=== PATIENT | male | born 1995 | race Caucasian/White ===

== ENCOUNTER 2019-04-30 12:16 | Emergency (ER) | payer BC, SELFPAY ==
[2019-04-30 12:34] VITALS: BP 133/75; PULSE 64; RESP 16; TEMP 36.7; O2SAT 100
--- NOTE | 2019-04-30 12:36 | ED.GENADULT ---
HPI - General Adult General Chief complaint: Upper Respiratory Infection Stated complaint: cough/nausea/light-headed Source: patient and RN notes reviewed Mode of arrival: ambulatory Limitations: no limitations History of Present Illness HPI narrative: This is a 23 years old male presents to the office for an evaluation of cold symptoms for 16days. Symptoms include cough associated with nausea and lightheaded at times especially when he moves his head. He did not take any medicine for his symptoms, stated that he does not like to take anything. He also stated that his was sick with similar symptoms and had negative strep and flu. States, he took the last two days off because he did not feel well. His manager organizational asked him to be seen and get a work release before he can go back. Related Data Allergies Allergy/AdvReac Type Severity Reaction Status Date / Time codeine Allergy Mild Nausea Unverified 11/29/18 17:32 adhesive tape Allergy Unknown Unknown Verified 04/30/19 12:41 cast padding Allergy Mild Hives / Uncoded 01/07/16 14:12 Red Face CEPHALEXIN MONOHYDRATE Allergy Mild Unknown Uncoded 04/30/19 12:41 Review of Systems Review of Systems: Narrative: CONSTITUTIONAL: Denies fever, chills ENT: Denies rhinorrhea, congestion, sore throat CARDIOVASCULAR: Denies chest pain, palpitation RESPIRATORY: Denies dyspnea, wheezing. Report occasional cough and worse at night at times. GASTROINTESTINAL: Denies abdominal pain, nausea, vomiting, diarrhea. 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 There is no relevant family history pertinent to the presenting complaint. Exam Narrative: Exam Narrative: GENERAL: This is a well-nourished, well-developed patient, in no apparent distress. EYES: PERRL. EMOI. Sclera clear/white. Vision is grossly intact. EARS: External ears normal, auditory canals clear and without drainage, TMs normal without perforation. Hearing grossly intact. NOSE: External nose normal with no obvious nasal discharge, nares without redness, no rhinorrhea. THROAT: Mucous membranes moist, posterior pharynx clear. NECK: Neck supple, non-tender without lymphadenopathy, masses or thyromegaly. CARDIOVASCULAR: Regular rate and rhythm without murmurs, gallops, or rubs. RESPIRATORY: Clear to auscultation. Breath sounds equal bilaterally. No wheezes, rales, or rhonchi. GASTROINTESTINAL: Abdomen soft, non-tender, nondistended. Bowel sounds are active. No hepato-splenomegaly, or palpable masses. No guarding. SKIN: warm, intact with no suspicious lesions or rash, good texture and turgor. NEURO: awake, alert, and oriented to person, place and time. There were no obvious focal neurologic abnormalities. Steady gait EXTREMITIES: Normal range of motion. No edema. [place] Coma Scale Eye Opening: Spontaneous 4 Megan Coma Scale Motor: Obeys Commands 6 Megan Coma Scale Verbal: Oriented 5 Course Vital Signs Vital signs: Vital Signs Temperature 98.0 F 04/30/19 12:34 Pulse Rate 64 04/30/19 12:34 Respiratory Rate 16 04/30/19 12:34 Blood Pressure 133/75 04/30/19 12:34 Pulse Oximetry 100 04/30/19 12:34 Temperature 98.0 F 04/30/19 12:34 Pulse Rate 64 04/30/19 12:34 Respiratory Rate 16 04/30/19 12:34 Blood Pressure 133/75 04/30/19 12:34 Pulse Oximetry 100 03/1
== END 2019-04-30 12:56 | disposition home or self-care (01) ==
PROVIDERS: Emergency Provider Nurse Practitioner
DX: J06.9 Acute upper respiratory infection, unspecified (principal); Z87.891 Personal history of nicotine dependence
CPT/HCPCS: 99213; G0463

== ENCOUNTER 2019-08-30 20:56 | Emergency (ER) | payer MEDICAID, SELFPAY ==
--- NOTE | ~2019-08-30 | XR_ITS ---
EXAMINATION: XR hand RT min 3V DATE: 08/30/2019 21:10 INDICATION: Right hand injury and pain. TECHNIQUE: 4 views of right hand were obtained. COMPARISON: Right hand radiographs 01/07/2016 FINDINGS: Bone alignment is normal. There is an old healed fracture of fifth metacarpal. No acute fr acture. There is mild posttraumatic osteoarthritis of fifth metacarpophalangeal joint. IMPRESSION: 1. 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 Reviewed, dictated and finalized at location A.
[2019-08-30 21:03] VITALS: BP 132/83; PULSE 65; RESP 20; TEMP 36.5; O2SAT 100
--- NOTE | 2019-08-30 21:07 | PC.NURSE ---
pt to xray at this time
--- NOTE | 2019-08-30 21:44 | ED.UPPEXIN ---
HPI - Extremity Injury (Upper) General Chief Complaint: Extremity Injury, Upper Stated Complaint: punched something Time Seen by Provider: 08/30/19 21:17 Source: patient Mode of arrival: ambulatory Limitations: no limitations History of Present Illness HPI narrative: This is a 23-year-old male that presents the emergency department for right hand pain after an injury 2 days ago. Patient reports he punched a wall. Since has had pain in the right fifth metacarpal bone. Reports a previous injury to this hand. Denies decreased range of motion or numbness. Related Data Home Medications Medication Instructions Recorded Confirmed No Home Medications 08/30/19 08/30/19 Allergies Allergy/AdvReac Type Severity Reaction Status Date / Time cephalexin Allergy Severe Nausea And Verified 08/30/19 21:05 Vomiting codeine Allergy Mild Nausea Unverified 08/30/19 21:05 adhesive tape Allergy Unknown Unknown Verified 08/30/19 21:05 cast padding Allergy Mild Hives / Uncoded 08/30/19 21:05 Red Face CEPHALEXIN MONOHYDRATE Allergy Mild Unknown Uncoded 08/30/19 21:05 Review of Systems Review of Systems: Narrative: CONSTITUTIONAL: Denies fever MUSCULOSKELETAL: Reports joint pain, and myalgia. NEUROLOGIC: Denies numbness, or weakness. All systems reviewed & are unremarkable except as noted in HPI and below PMFSH Social History Social History (System 05/01/19 @ 09:31 by Sophia Charles) Social History: quite 03/2019 Smoking status: Never smoker Alcohol intake: current Gender identity (if verbalized by the patient): Male Exam Narrative: Exam Narrative: GENERAL: Well-appearing, well-nourished, and in no acute distress. HEAD: Normocephalic, atraumatic. EYES: EOMI. EXTREMITIES: Normal range of motion. No edema or obvious deformity. Normal radial pulses. Normal sensation SKIN: Warm, dry, no rash. NEURO: No focal deficits. Alert and oriented x3. PSYCH: Normal mood and affect Course Vital Signs Vital signs: Vital Signs Temperature 97.7 F 08/30/19 21:03 Pulse Rate 65 08/30/19 21:03 Respiratory Rate 20 08/30/19 21:03 Blood Pressure 132/83 08/30/19 21:03 Pulse Oximetry 100 08/30/19 21:03 Temperature 97.7 F 08/30/19 21:03 Pulse Rate 65 07/18/20 21:03 Respiratory Rate 20 08/30/19 21:03 Blood Pressure 132/83 08/30/19 21:03 Pulse Oximetry 100 08/30/19 21:03 MDM - Extremity Injury (Upper) MDM Narrative Medical decision making narrative: Patient presents to the emergency department for right hand pain after an injury 2 days ago. Right hand x-ray is without acute osseous abnormalities. Patient and family updated on case findings. Was placed in a Bird wrap and instructed to rest, ice and take [id number] pain medication as needed. Is to follow-up with primary care doctor. Was given warnings to return to the ER Imaging Data Radiologist's impression: ITS Impressions Hand X-Ray 08/30/19 21:12 IMPRESSION: 1. 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 Critical Care Time Critical Care Time Critical Care Time: No Discharge Plan Discharge Clinical Impression: Hand pain, right Patient Disposition: Home, Self-Care Condition: Stable Instructions: Contusion in Adults (ED) Additional Instructions: Return to the emergency department if you experience fever, redness and swelling of your hand, or any other symptoms that are concerning to you Rest. Ice to the area. Tylenol or ibuprofen as needed for pain Follow-up with primary care doctor Prescriptions: No Action No Home Medications RF: 0 Follow-up/Referrals: Jayshree Isidro MD [Physician] - 1 Week PHYSICIAN,DECORATING MACHINE TENDER [Primary Care Provider] -
[2019-08-30 22:03] VITALS: BP 132/79; PULSE 60; RESP 18; O2SAT 99
== END 2019-08-30 22:04 | disposition home or self-care (01) ==
PROVIDERS: Emergency Provider Emergency Medicine
DX: M79.641 Pain in right hand (principal); M18.9 Osteoarthritis of first carpometacarpal joint, unspecified
CPT/HCPCS: 73130; 99283

== ENCOUNTER 2020-06-06 17:26 | Emergency (ER) | payer OTHER, SELFPAY ==
[2020-06-06 17:36] VITALS: BP 142/92; PULSE 80; RESP 16; TEMP 36.6; O2SAT 99
--- NOTE | 2020-06-06 17:47 | ED.WOUNDLAC ---
HPI - Wound/Laceration General Chief Complaint: Wound/Laceration Stated Complaint: cut right 2nd finger Time Seen by Provider: 06/06/20 17:40 Source: patient Mode of arrival: ambulatory Limitations: no limitations History of Present Illness HPI narrative: Sohan Gibbs is a 24 yo male with a PMH of bipolar disorder who [facility] with a fingertip avulsion of the second right finger with from a mandolin knife that occurred 5 hours POA. Is continued to bleed and will need Surgicel placed and pressure dressing Related Data Allergies Allergy/AdvReac Type Severity Reaction Status Date / Time cephalexin Allergy Severe Nausea And Verified 06/06/20 17:51 Vomiting codeine Allergy Mild Nausea Verified 06/06/20 17:51 adhesive tape Allergy Unknown Unknown Verified 06/06/20 17:51 cast padding Allergy Mild Hives / Uncoded 06/06/20 17:51 Red Face CEPHALEXIN MONOHYDRATE Allergy Mild Unknown Uncoded 06/06/20 17:51 Review of Systems Review of Systems: Narrative: CONSTITUTIONAL: Denies fever, chills, sweats. EYES: Denies visual changes, redness, discharge. ENT: Denies rhinorrhea, congestion, sore throat, otalgia. CARDIOVASCULAR: Denies chest pain, palpitations, edema. RESPIRATORY: Denies dyspnea, wheezing, cough GASTROINTESTINAL: Denies abdominal pain, nausea, vomiting, diarrhea. GENITOURINARY: Denies dysuria, hematuria, abnormal discharge SKIN: Denies rash or itching. Avulsion of second right fingertip NEUROLOGIC: Denies numbness, or focal weakness. PSYCHIATRIC: Denies anxiety or depression. [facility] Past Medical History Medical History (Updated 06/06/20 @ 17:57 by Kristy Carlos CNP) Asthma as a kid Back injury during [employer] training for [employer] 2016 Hx of fracture of finger from basketball Family History Family History Mother Family history of glaucoma Father Patient's father is in good health Social History Social History Social History: quite 03/2019 Smoking status: Never smoker Alcohol intake: current Gender identity (if verbalized by the patient): Male Comments At time of signature, I agree with nursing past medical, surgical, social and family history. There is no relevant family history pertinent to the presenting complaint. Blood pressure is elevated due to situation of injury and amount of bleeding Exam Narrative: Exam Narrative: GENERAL: This is a well-nourished, well-developed patient, in moderate distress. HEAD: normocephalic, atraumatic. EYES: Sclera clear/white. Vision is grossly intact. EARS: External ears normal. Hearing grossly intact. NOSE: External nose normal without nasal discharge, nares without redness, no rhinorrhea. THROAT: Mucous membranes moist, NECK: Neck supple, r CARDIOVASCULAR: Regular rate and rhythm without murmurs, gallops, or rubs. RESPIRATORY: Clear to auscultation. Breath sounds equal bilaterally. No wheezes, rales, or rhonchi. GASTROINTESTINAL: Abdomen soft, SKIN: warm, intact with no suspicious lesions or rash, good texture and turgor. NEURO: awake, alert, and oriented to person, place and time. There were no obvious focal neurologic abnormalities. Steady gait EXTREMITIES: Normal range of motion. Negative avulsion of the second right finger with uncontrolled bleeding - finger warm and pink BACK: Nontender without deformity Course Course Emergency Course: Sohan Gibbs is a 24-year-old male who comes with a fingertip avulsion of the second f right finger from a mandolin that occurred 5 hours POA. Bleeding is uncontrolled Pain via soaking and Surgicel applied to wound with pressure dressing Tetanus vaccination given Directions to patient given cream and removal of Surgicel in 5 days protection of area with finger cap Until fully healed Vital Signs Vital signs: Vital Signs Temperature 97.9 F 06/06/20 17:36 Pulse Rate 80 06/06/
[2020-06-06] MEDS: TETANUS,DIPHTHERIA,AC PERTUSSIS ADULT (0.5 ML) BOOSTRIX IM (17:55)
== END 2020-06-06 18:17 | disposition home or self-care (01) ==
PROVIDERS: Emergency Provider Nurse Practitioner
DX: S61.200D Unspecified open wound of right index finger without damage to nail, subsequent encounter (principal); W26.0XXD Contact with knife, subsequent encounter; Z23 Encounter for immunization
CPT/HCPCS: 90471; 90715; 99213; G0463

== ENCOUNTER 2020-06-06 20:23 | Emergency (ER) | payer OTHER, SELFPAY ==
[2020-06-06 20:38] VITALS: BP 141/83; PULSE 79; RESP 17; TEMP 36.4; O2SAT 98
--- NOTE | 2020-06-06 21:18 | ED.WOUNDLAC ---
HPI - Wound/Laceration General Chief Complaint: Wound/Laceration Stated Complaint: wound check Time Seen by Provider: 06/06/20 20:54 History of Present Illness HPI narrative: Patient is a 24-year-old male who presents ER with finger pain. Had injured his right second on a mandolin. She was seen at an urgent care and had the wound dressed. Unfortunately the pharmacies were not open he was not able to obtain his prescriptions. No new injury to the finger. Continues to have some throbbing pain. Related Data Allergies Allergy/AdvReac Type Severity Reaction Status Date / Time cephalexin Allergy Severe Nausea And Verified 06/06/20 20:38 Vomiting codeine Allergy Mild Nausea Verified 06/06/20 20:38 adhesive tape Allergy Unknown Unknown Verified 06/06/20 20:38 cast padding Allergy Mild Hives / Uncoded 06/06/20 17:51 Red Face CEPHALEXIN MONOHYDRATE Allergy Mild Unknown Uncoded 06/06/20 17:51 Review of Systems Musculoskeletal: Comments: Right second digit pain with avulsion to the fingertip. Neurologic: Denies focal weakness and Denies numbness PMFSH Past Medical History Medical History (Updated 06/06/20 @ 21:22 by Jt Flores MD) Asthma as a kid Back injury during [employer] training for [employer] 2016 Hx of fracture of finger from basketball Family History Family History Mother Family history of glaucoma Father Patient's father is in good health Social History Social History Social History: quite 03/2019 Smoking status: Never smoker Alcohol intake: current Gender identity (if verbalized by the patient): Male Exam Narrative: Exam Narrative: GENERAL: Well-appearing, well-nourished, and in no acute distress. HEAD: Normocephalic, atraumatic. EXTREMITIES: Normal range of motion. Splint to the right second digit. NEURO: Alert and oriented x3. PSYCH: Normal mood and affect. Course Course Emergency Course: First dose is given here. He can barely pharmacy in the morning until the rest of his medications. Coban removed from the splint as it may have been tight causing some discomfort and then rewrapped. Vital Signs Vital signs: Vital Signs Temperature 97.5 F L 06/06/20 20:38 Pulse Rate 79 06/06/20 20:38 Respiratory Rate 17 06/06/20 20:38 Blood Pressure 141/83 H 06/06/20 20:38 Pulse Oximetry 98 06/06/20 20:38 Temperature 97.5 F L 06/06/20 20:38 Pulse Rate 79 06/06/20 20:38 Respiratory Rate 17 06/06/20 20:38 Blood Pressure 141/83 H 06/06/20 20:38 Pulse Oximetry 98 06/06/20 20:38 Discharge Plan Discharge Clinical Impression: Avulsion of fingertip Patient Disposition: Home, Self-Care Condition: Stable Instructions: Skin Avulsion (ED) Additional Instructions: Go to the pharmacy and picking table worker the medication that had been previously prescribed in the morning. Return to the ER if your hand is red and hot, you have fever over 100.4 ?F, you have additional concerns. Prescriptions: No Action clindamycin HCl 300 mg capsule 300 mg PO BID 7 Days Qty: 14 RF: 0 hydrocodone-acetaminophen 5-325 mg tablet 1 tablet PO Q4H PRN (Reason: pain) Qty: 20 RF: 0 Follow-up/Referrals: PHYSICIAN,ENVIRONMENTAL COMMUNICATIONS SPECIALIST [Primary Care Provider] -
[2020-06-06] MEDS: HYDROcodone/acetaminophen (*CRX) 5-325 MG TABLET 1 TAB PO (21:20)
[2020-06-06] MEDS: CLINDAMYCIN HCL 150 MG CAP 300 MG PO (21:23)
== END 2020-06-06 21:31 | disposition home or self-care (01) ==
PROVIDERS: Emergency Provider Emergency Medicine
DX: S61.200A Unspecified open wound of right index finger without damage to nail, initial encounter (principal); W27.4XXA Contact with kitchen utensil, initial encounter; Z23 Encounter for immunization
CPT/HCPCS: 90471; 90715; 99283; A9270

== ENCOUNTER 2020-08-03 10:28 | Outpatient (CLI) | payer OTHER, SELFPAY ==
--- NOTE | ~2020-08-03 | XR_ITS ---
EXAMINATION: XR thoracic spine 3V DATE: 08/03/2020 10:57 INDICATION: Back pain TECHNIQUE: AP, lateral and lateral swimmer's views of the thoracic spine were obtained. COMPARISON: None. FINDINGS: There is no fracture, dislocation, or subluxation. The vertebral body heights, alignment, a nd intervertebral disc spaces are normal. The paravertebral soft tissues are unremarkable. IMPRESSION: 1. No acute osseous abnormality. Reviewed, dictated and finalized at location A.
--- NOTE | ~2020-08-03 | XR_ITS ---
XR lumbar spine 2-3V 08/03/2020 10:57 Indication: Back pain Procedure: 3 views lumbar spine Comparison: 09/17/2018. Findings: Vertebral body and disc heights are preserved. No fracture or traumatic malalignment. Pedic les intact. No evidence for spondylolisthesis. Sacral foramen are symmetric. Impression: 1: No significant abnormality of the lumbar spine. Reviewed, dictated and finalized at location B. Impression: 1: No significant abnormality of the lumbar spine.
--- NOTE | ~2020-08-03 | XR_ITS ---
XR cervical spine 4-5V INDICATION: Neck and back pain for 6 years TECHNIQUE: 4 views of the cervical spine. FINDINGS: No prior studies for comparison. The cervical spine is visualized to the cervicothoracic junction. There is no prevertebral soft tiss ue swelling, listhesis, or loss of vertebral body height. Intervertebral disc spaces are normal. Th e osseous central canal is patent. No displaced cervical spine fractures are identified. IMPRESSION: 1. No acute osseous abnormality of the cervical spine. Reviewed, dictated and finalized at location B.
== END 2020-08-03 10:29 | disposition home or self-care (01) ==
LOC: ANHIMG 10:33
PROVIDERS: PCP Physician Assistant; Visit Provider Physician Assistant
DX: M54.6 Pain in thoracic spine (principal); M54.2 Cervicalgia; M54.5 Low back pain
CPT/HCPCS: 72050; 72072; 72100

== ENCOUNTER 2021-02-19 10:37 | Emergency (ER) | payer OTHER, SELFPAY ==
--- NOTE | ~2021-02-19 | XR_ITS ---
EXAMINATION: XR chest 2V DATE: 02/19/2021 12:37 INDICATION: Right-sided chest pain. TECHNIQUE: Frontal and lateral views of the chest were obtained. COMPARISON: Chest 2 views 11/23/2018 FINDINGS: The chest demonstrates clear lungs without pneumonia, pleural effusion, or pneumothorax. Th e heart size is normal. IMPRESSION: 1. No acute cardiopulmonary disease. Reviewed, dictated and finalized at location A. LANGUAGE INSTRUCTOR
[2021-02-19 10:43] VITALS: BP 155/91; PULSE 66; RESP 14; TEMP 36.2; O2SAT 99
[2021-02-19 12:08] VITALS: BP 150/104; PULSE 66; RESP 16; O2SAT 95
--- NOTE | 2021-02-19 12:14 | ECG_ITS ---
Measurements Intervals [place] Rate: 68 P: 48 MS: 146 QRS: 55 QRSD: 102 T: 27 QT: 374 QTc: 400 Interpretive Statements SINUS RHYTHM WITH SINUS ARRHYTHMIA MINIMAL Q WAVES- INFERIOR LEADS BORDERLINE ECG Electronically Signed On 02-19-2021 18:20:40 SOCK LINING STITCHER by Dimitri Davey D.O.
--- NOTE | 2021-02-19 12:20 | ED.CHESTPAIN ---
HPI - Chest Pain General Chief Complaint: Chest Pain Stated Complaint: chest pain Time Seen by Provider: 02/19/21 12:13 Source: patient Mode of arrival: ambulatory Limitations: no limitations History of Present Illness HPI narrative: Patient is a 25-year-old male complaining of chest pain, right chest wall, dull, was 5-6 out of 10, currently denies any pain, worse with movement and bending over, started yesterday. Patient denies any shortness of breath, abdominal pain, nausea, vomiting, diaphoresis, fever or chills. Related Data Home Medications Medication Instructions Recorded Confirmed levothyroxine 02/19/21 prednisone 02/19/21 Allergies Allergy/AdvReac Type Severity Reaction Status Date / Time cephalexin Allergy Severe Nausea And Verified 06/06/20 20:38 Vomiting codeine Allergy Mild Nausea Verified 06/06/20 20:38 adhesive tape Allergy Unknown Unknown Verified 06/06/20 20:38 cast padding Allergy Mild Hives / Uncoded 06/06/20 17:51 Red Face CEPHALEXIN MONOHYDRATE Allergy Mild Unknown Uncoded 06/06/20 17:51 Review of Systems Review of Systems: All systems reviewed & are unremarkable except as noted in HPI and below Constitutional: Constitutional: Denies body ache(s), Denies chills, Denies excessive sweating, Denies fatigue, Denies fever(s), Denies headache(s), Denies lethargy, Denies malaise, Denies weakness and Denies weight loss Eyes: Eyes: Denies blurry vision, Denies change in vision and Denies loss of vision ENT: Denies dizziness, Denies ear discharge, Denies headache(s), Denies lip swelling, Denies epistaxis, Denies nasal congestion, Denies neck pain, Denies throat swelling and Denies tongue swelling Cardiovascular: Cardiovascular: Denies diaphoresis, Denies rapid heart rate, Denies edema, Denies irregular heart rhythm, Denies lightheadedness, Denies palpitations, Denies dyspnea and Denies dyspnea on exertion Respiratory: Respiratory: Denies chest congestion, Denies cough, Denies hemoptysis, Denies dyspnea and Denies dyspnea on exertion Gastrointestinal: Gastrointestinal: Denies abdominal pain, Denies melena, Denies hematochezia, Denies diarrhea, Denies nausea, Denies vomiting and Denies hematemesis Musculoskeletal: Musculoskeletal: Denies abnormal gait, Denies deformity, Denies joint swelling, Denies limited range of motion, Denies neck pain and Denies numbness Neurologic: Denies Abnormal speech present, Denies abnormal gait, Denies confusion, Denies dizziness, Denies headache(s), Denies focal weakness, Denies loss of vision, Denies numbness, Denies Other visual disturbances, Denies Sensory deficit (Neuro) and Denies weakness Psychiatric: Psychiatric: Denies confusion, Denies depression, Denies auditory hallucinations, Denies homicidal ideation and Denies suicidal ideation Endocrine: Endocrine: Denies cold intolerance, Denies excessive sweating, Denies fatigue, Denies heat intolerance and Denies palpitations Hematologic/Lymphatic: Hematologic/Lymphatic: Denies easy bleeding and Denies easy bruising Allergic/Immunologic: Allergic/Immunologic: Denies lip swelling, Denies throat swelling and Denies tongue swelling PMFSH Past Medical History Medical History (Updated 02/19/21 @ 14:10 by Florencio Dickinson MD) Asthma as a kid Back injury during [employer] training for [employer] 2015 Hx of fracture of finger from basketball Family History Family History Mother Family history of glaucoma Father Patient's father is in good health Social History Social History Social History: quite 03/2019 Smoking status: Never smoker Alcohol intake: current Gender identity (if verbalized by the patient): Male Exam Const: General: cooperative, healthy appearing, comfortable, no acute distress, well developed, alert and awake; No confusion Orientation/consciousness: oriented to person, oriented
[2021-02-19 13:00] VITALS: BP 141/92; PULSE 65; RESP 16; O2SAT 97
[2021-02-19 13:09] LABS: Basophils Absolute Auto 0.1 K/mm3 (0.0-0.1); Basophils Percent Auto 0.5 % (0.2-1.2); Eosinophils Percent Auto 0.3 % (0-4.4); Hematocrit 46.2 % (42.0-52.0); Hemoglobin 15.7 g/dL (14.0-18.0); Immature Granulocyte Absolute 0.07 K/mm3 (0.00-0.031); Immature Granulocyte Percent A 0.5 % (0-0.5); Lymphocytes Absolute Auto 1.63 K/mm3 (0.9-3.2); Lymphocytes Percent Auto 12.3 % (18.3-44.2); Mean Corpuscular Hemoglobin 29.3 pg (26-34); Mean Corpuscular Volume 86.4 fl (80-100); Mean Platelet Volume 9.9 fl (7.4-10.4); Monocytes Absolute Auto 0.4 K/mm3 (0.1-0.6); Monocytes Percent Auto 3.1 % (2.6-8.5); Neutrophils Percent Auto 83.3 % (45.5-73.1); Platelet Count Result 359 k/mm3 (150-375); Red Blood Count 5.35 M/mm3 (4.6-6.20); Red Cell Distribution Width 12.4 % (11.5-14.5); White Blood Count 13.2 K/mm3 (4.5-10.0)
[2021-02-19 13:21] LABS: Anion Gap 12 mmol/L (8-16); Blood Urea Nitrogen 18 mg/dL (9-20); Carbon Dioxide 21 mmol/L (22-30); Chloride 102 mmol/L (98-107); Estimated CRCL calculation 110 ml/min; Estimated Glomerular Filt Rate > 60; Glucose 116 mg/dL (65-110); Potassium 4.4 mmol/L (3.4-5.0); Sodium 135 mmol/L (137-145)
[2021-02-19 13:32] LABS: Troponin I < 0.012 ng/mL (0.000-0.034)
[2021-02-19 14:27] VITALS: BP 137/90; PULSE 73; RESP 16; O2SAT 100
== END 2021-02-19 14:30 | disposition home or self-care (01) ==
PROVIDERS: Emergency Provider Emergency Medicine; PCP Physician Assistant
DX: R07.89 Other chest pain (principal); J45.909 Unspecified asthma, uncomplicated; R94.31 Abnormal electrocardiogram [ECG] [EKG]
CPT/HCPCS: 36415; 71046; 80048; 84484; 85025; 93005; 99284

== ENCOUNTER 2021-03-03 16:50 | Outpatient (CLI) | payer OTHER, SELFPAY ==
--- NOTE | ~2021-03-03 | MR_ITS ---
EXAMINATION: MR lumbar spine wo con EXAM DATE: 03/03/2021 18:15 INDICATION: Low back pain. TECHNIQUE: Multi-sequential, multiplanar MR images of the lumbar spine were obtained without contrast . Sagittal T1, T2, T2 fat saturation images. Axial T2 weighted images. There is no prior study for comparison. FINDINGS: Vertebral body and disc heights are well-maintained. There are no suspicious marrow signal abnormalit ies. Paraspinal soft tissue is unremarkable. The conus medullaris terminates at the L1/2 level and shah s normal signal intensity and morphology. Level by level evaluation: T12-L1: Disc does not extend beyond the endplate margin. Facet arthropathy: None. Neural foraminal stenosis: No stenosis. Central canal stenosis: No stenosis. L1-L2: Disc does not extend beyond the endplate margin. Facet arthropathy: None. Neural foraminal stenosis: No stenosis. Central canal stenosis: No stenosis. L2-L3: Disc does not extend beyond the endplate margin. Facet arthropathy: None. Neural foraminal stenosis: No stenosis. Central canal stenosis: No stenosis. L3-L4: There is a minimal diffuse disc bulge. Facet arthropathy: Mild. Neural foraminal stenosis: No stenosis. Central canal stenosis: No stenosis. L4-L5: There is a mild diffuse disc bulge. Facet arthropathy: Mild. Neural foraminal stenosis: Mild bilateral. Central canal stenosis: No stenosis. L5-S1: There is a mild diffuse disc bulge. Facet arthropathy: Mild. Neural foraminal stenosis: Mild left. Central canal stenosis: No stenosis. IMPRESSION: Mild lumbar spondylosis. No acute findings. Reviewed, dictated and finalized at location B. BOAT ENGINEER
== END 2021-03-03 16:51 | disposition home or self-care (01) ==
PROVIDERS: PCP Physician Assistant; Visit Provider Physician Assistant Surgical
DX: M47.817 Spondylosis without myelopathy or radiculopathy, lumbosacral region (principal); M48.07 Spinal stenosis, lumbosacral region
CPT/HCPCS: 72148

== ENCOUNTER 2022-03-09 08:08 | Emergency (ER) | payer OTHER, SELFPAY ==
--- NOTE | 2022-03-09 08:22 | ED.URI ---
HPI - URI/Sore Throat General Chief Complaint: Upper Respiratory Infection Stated Complaint: sorethroat,headache Time Seen by Provider: 03/09/22 08:22 Source: patient, RN notes reviewed and old records reviewed Mode of arrival: ambulatory Limitations: no limitations History of Present Illness HPI Narrative: 26-year-old male presents to the [facility] with complaints of a sore throat and headache since last night. Reports a fever of 102 last night, took some Tylenol. reports headache is gone patient reports symptoms started approximately 6:00 p.m. last night MD elicited complaint: sore throat Onset (ago): hour(s) (12-18) Related Data Home Medications Medication Instructions Recorded Confirmed levothyroxine 25 mcg tablet 25 mcg DIRECTED 03/09/22 03/09/22 lisinopril 10 1 tablet DIRECTED 03/09/22 03/09/22 mg-hydrochlorothiazide 12.5 mg tablet Allergies Allergy/AdvReac Type Severity Reaction Status Date / Time cephalexin Allergy Severe Nausea And Verified 06/06/20 20:38 Vomiting codeine Allergy Mild Nausea Verified 06/06/20 20:38 adhesive tape Allergy Unknown Unknown Verified 06/06/20 20:38 cast padding Allergy Mild Hives / Uncoded 06/06/20 17:51 Red Face CEPHALEXIN MONOHYDRATE Allergy Mild Unknown Uncoded 06/06/20 17:51 Review of Systems Review of Systems: All systems reviewed & are unremarkable except as noted in HPI and below Constitutional: Constitutional: Reports as per HPI, Reports fever(s) and Reports headache(s) Eyes: Eyes: Reports no additional eye complaints ENT: Reports as per HPI and Reports sore throat Cardiovascular: Cardiovascular: Reports no additional cardiovascular complaints, Denies chest pain and Denies dyspnea Respiratory: Respiratory: Reports no additional respiratory complaints, Denies chest congestion, Denies cough and Denies dyspnea Gastrointestinal: Gastrointestinal: Reports no additional gastrointestinal complaints, Denies abdominal pain, Denies nausea and Denies vomiting Musculoskeletal: Musculoskeletal: Reports no additional musculoskeletal complaints Integumentary/Breasts: Skin/Breast: Reports system reviewed and no additional complaints, except as docu Neurologic: Reports system reviewed and no additional complaints, except as documented Psychiatric: Psychiatric: Reports no additional psychiatric complaints Allergic/Immunologic: Allergic/Immunologic: Reports no additional allergic/immunologic complaints PMFSH Past Medical History Medical History (Updated 01/26/23 @ 08:39 by Shanda Macario APRN) Asthma as a kid Back injury during [employer] training for [employer] 2016 Hx of fracture of finger from basketball Family History Family History Mother Family history of glaucoma Father Patient's father is in good health Social History Social History Social History: quite 03/2019 Smoking status: Never smoker Alcohol intake: current Gender identity (if verbalized by the patient): Male Comments At the time of my signature, I reviewed and agree with the nursing past medical, surgical, social, and family history. There is no relevant family history pertinent to the patient complaint. Exam Const: General: cooperative, healthy appearing, comfortable, no acute distress, well developed, alert and well nourished Nutritional Appearance: well nourished Orientation/consciousness: patient oriented x3 Limitations: no limitations HENMT: Head: normal to inspection Ears: hearing grossly normal bilaterally and external ears normal Face/Nose/Sinus: Normal external nose present, Normal nares present, Normal nasal mucous membranes and turbinates present and normal facial exam Face and sinus: normal facial exam Mouth: Yes Normal oral and palatal mucosa present, Yes lip normal and Yes moist mucous membranes Throat: uvula midline, abnormal tonsil bilateral e
[2022-03-09 08:24] VITALS: BP 134/84; PULSE 94; RESP 20; TEMP 36.8; O2SAT 99
== END 2022-03-09 08:48 | disposition home or self-care (01) ==
PROVIDERS: Emergency Provider Nurse Practitioner; PCP Physician Assistant
DX: J02.0 Streptococcal pharyngitis (principal)
CPT/HCPCS: 87880; 99213; G0463

== ENCOUNTER 2022-08-09 08:04 | Emergency (ER) | payer OTHER, SELFPAY ==
[2022-08-09 08:24] VITALS: BP 136/80; PULSE 70; RESP 16; TEMP 36.5; O2SAT 99
--- NOTE | 2022-08-09 08:37 | ED.EYEPROB ---
HPI - Eye Problem General Chief complaint: Eye Problems Stated complaint: bilateral eye irritation Time Seen by Provider: 08/09/22 08:32 Source: patient and RN notes reviewed Mode of arrival: ambulatory Limitations: no limitations History of Present Illness HPI Narrative: Patient presents today complaining bilateral eye redness and irritation with left eye drainage and swelling. The left eye started with symptoms 3 days ago and the right eye started today. States his children and mother both have pinkeye currently. He has been using some [id number]-velguuh or pink eye drops without relief and has been wiping his left eye drainage with a warm compress. Drainage is yellow/green. Denies vision changes, but does report some itching. He does wear contacts, but has not had them in for approximately 2 weeks. Related Data Home Medications Medication Instructions Recorded Confirmed levothyroxine 25 mcg tablet 25 mcg DIRECTED 03/09/22 08/09/22 lisinopril 10 1 tablet DIRECTED 03/09/22 08/09/22 mg-hydrochlorothiazide 12.5 mg tablet Allergies Allergy/AdvReac Type Severity Reaction Status Date / Time cephalexin AdvReac Intermediate Nausea And Verified 08/09/22 08:22 Vomiting adhesive tape AdvReac Mild Hives Verified 08/09/22 08:22 codeine AdvReac Mild Nausea Verified 08/09/22 08:22 cast padding AdvReac Mild Hives / Uncoded 08/09/22 08:22 Red Face CEPHALEXIN MONOHYDRATE AdvReac Mild Nausea and Uncoded 08/09/22 08:22 Vomiting Review of Systems Review of Systems: CONSTITUTIONAL: Denies body aches, fever, chills, or sweats. EYES: Denies visual changes. + bilateral eye redness, left eye swelling and drainage ENT: Denies rhinorrhea, congestion, sore throat, or otalgia. CARDIOVASCULAR: Denies chest pain, palpitations, or edema. RESPIRATORY: Denies cough or dyspnea. GASTROINTESTINAL: Denies abdominal pain, nausea, vomiting, or diarrhea. GENITOURINARY: Denies dysuria or hematuria. SKIN: Denies rash, itching, or wounds. MUSCULOSKELETAL: Denies back pain, joint pain, or myalgia. NEUROLOGIC: Denies headache, numbness, tingling, or weakness. PSYCH: Denies depression or anxiety. [facility] Past Medical History Medical History (Updated 08/09/22 @ 08:42 by Leida Decker, PADMINI, TRE) Asthma as a kid Back injury during [employer] training for [employer] 2016 Hx of fracture of finger from basketball Family History Family History Mother Family history of glaucoma Father Patient's father is in good health Social History Social History Social History: quite 03/2019 Smoking status: Former smoker Alcohol intake: current Gender identity (if verbalized by the patient): Male Comments At time of signature, I have reviewed and agree with nursing past medical, surgical, social and family history unless otherwise noted. Please see nursing chart for further information. There is no relevant family history pertinent to the presenting complaint Exam Narrative: GENERAL: Well-appearing, well-nourished, and in no acute distress. HEAD: Normocephalic, atraumatic. EYES: EOMI. PERRL. Right eye: Mildly injected conjunctiva without swelling or drainage. Lids and lashes normal. Left eye: Moderately injected conjunctiva with small amount of yellow drainage in the medial canthus. Mild swelling of the upper eyelid. ENT: Mucous membranes pink and moist. NECK: Normal AROM. CHEST: No respiratory distress. EXTREMITIES: Normal range of motion. No edema. SKIN: Warm, dry, no rash. Capillary refill normal. Normal skin turgor. NEURO: No focal deficits. Alert and oriented x3. Gait steady. PSYCH: Normal affect. No signs of depression or anxiety. Course Course Level of Care: Express Care Visit Vital Signs Vital signs: Vital Signs Temperature 97.7 F 08/09/22 08:24 Pulse Rate 70 08/09
== END 2022-08-09 08:44 | disposition home or self-care (01) ==
PROVIDERS: Emergency Provider Nurse Practitioner; PCP Physician Assistant
DX: H10.33 Unspecified acute conjunctivitis, bilateral (principal); Z87.891 Personal history of nicotine dependence
CPT/HCPCS: 99213; G0463

== ENCOUNTER 2022-11-02 12:53 | Emergency (ER) | payer OTHER, SELFPAY ==
--- NOTE | 2022-11-02 12:57 | ED.URI ---
HPI - URI/Sore Throat General Chief Complaint: Upper Respiratory Infection Stated Complaint: sorethroat Time Seen by Provider: 11/02/22 13:20 Source: patient and RN notes reviewed Mode of arrival: ambulatory Limitations: no limitations History of Present Illness HPI Narrative: 27-year-old male presents with concern for sore throat, sinus pain, left sided ear pain, left-sided neck pain. Reports the symptoms started 5 days ago after he snorted Adderall through the left nostril. He denies fever, aches, chills, sweats, cough. MD elicited complaint: sore throat, nasal congestion and sinus pain Related Data Home Medications Medication Instructions Recorded Confirmed levothyroxine 25 mcg tablet 25 mcg DIRECTED 03/09/22 08/09/22 lisinopril 10 1 tablet DIRECTED 03/09/22 08/09/22 mg-hydrochlorothiazide 12.5 mg tablet Allergies Allergy/AdvReac Type Severity Reaction Status Date / Time cephalexin AdvReac Intermediate Nausea And Verified 08/09/22 08:22 Vomiting adhesive tape AdvReac Mild Hives Verified 08/09/22 08:22 codeine AdvReac Mild Nausea Verified 08/09/22 08:22 cast padding AdvReac Mild Hives / Uncoded 08/09/22 08:22 Red Face CEPHALEXIN MONOHYDRATE AdvReac Mild Nausea and Uncoded 08/09/22 08:22 Vomiting Review of Systems Review of Systems: CONSTITUTIONAL: Denies malaise, chills, sweats, or fever. EYES: Denies visual changes, redness, or discharge. ENT: Reports left-sided congestion, sinus pain, otalgia and sore throat. CARDIOVASCULAR: Denies chest pain, palpitations, or edema. RESPIRATORY: Denies cough. Denies dyspnea. GASTROINTESTINAL: Denies abdominal pain, nausea, vomiting, diarrhea SKIN: Denies rash or itching. MUSCULOSKELETAL: Denies myalgia. NEUROLOGIC: Reports left-sided frontal headache. All systems reviewed & are unremarkable except as noted in HPI and below PMFSH Past Medical History Medical History (Updated 11/02/22 @ 13:21 by Shanda Pandya NP) Asthma as a kid Back injury during [employer] training for [employer] 2016 Hx of fracture of finger from basketball Family History Family History Mother Family history of glaucoma Father Patient's father is in good health Social History Social History Social History: quite 03/2019 Smoking status: Former smoker Alcohol intake: current Gender identity (if verbalized by the patient): Male Comments At time of signature, agree with nursing past medical, surgical, social and family history. There is no relevant family history pertinent to the presenting complaint Exam Narrative: GENERAL: Well-appearing, well-nourished, and in no acute distress. HEAD: Normocephalic EYES: PERRLA, conjunctivae clear ENT: Nares clear, turbinates edematous and erythematous on the left side. Mucous membranes moist. TM pearly mckeon with dull light reflex bilaterally; no tragal tenderness. Oropharynx not erythematous without lesions. Tonsils not enlarged and without exudate, no drooling, no hoarseness, no trismus, uvula midline. NECK: Supple. No lymphadenopathy CHEST: Clear to auscultation, breath sounds equal. No wheezing, rhonchi, rales, or stridor. No respiratory distress, speaks in full sentences. HEART: Regular rate and rhythm. No murmur heard. SKIN: Warm, dry, no rash. NEURO: Alert and oriented x3. PSYCH: Normal mood and affect Course Course Emergency Course: Patient is aware of diagnosis, understands and agrees to treatment plan. Anticipatory guidance given. Patient agrees to follow-up as directed and is aware of reasons to seek care at the emergency department. Portions of this record may have been created with voice recognition software Level of Care: Express Care Visit Vital Signs Vital signs: Reviewed. MDM - URI/Sore Throat MDM Narrative Medical decision making narrative: Differential diagnosis consi
[2022-11-02 13:02] VITALS: BP 143/84; PULSE 63; RESP 18; TEMP 36.3; O2SAT 100
== END 2022-11-02 13:30 | disposition home or self-care (01) ==
PROVIDERS: Emergency Provider Nurse Practitioner; PCP Physician Assistant
DX: J32.9 Chronic sinusitis, unspecified (principal); Z87.891 Personal history of nicotine dependence
CPT/HCPCS: 87081; 87880; 99213; G0463

== ENCOUNTER 2023-02-18 11:56 | Emergency (ER) | payer OTHER, SELFPAY ==
[2023-02-18 12:15] VITALS: BP 132/77; PULSE 87; RESP 16; TEMP 37.2; O2SAT 99
[2023-02-18 12:18] VITALS: BP 132/77; PULSE 87; RESP 16; TEMP 37.2; O2SAT 99
--- NOTE | 2023-02-18 12:41 | ED.GENADULT ---
HPI - General Adult General Chief complaint: Upper Respiratory Infection Stated complaint: congestion,sorethroat Time Seen by Provider: 02/18/23 12:41 Source: patient Mode of arrival: ambulatory Limitations: no limitations History of Present Illness HPI narrative: 27-year-old male patient presents to the [facility] with complaints of congestion and sinus pressure for the past 2-3 days. Denies fevers, body aches or chills. Denies coughing. Denies chest pain or shortness of breath. Denies any abdominal pain, nausea, vomiting or diarrhea. Patient states he has been taking some DayQuil for symptoms at times. Related Data Home Medications Medication Instructions Recorded Confirmed No Home Medications 02/18/23 02/18/23 Allergies Allergy/AdvReac Type Severity Reaction Status Date / Time cephalexin AdvReac Intermediate Nausea And Verified 02/18/23 12:17 Vomiting adhesive tape AdvReac Mild Hives Verified 02/18/23 12:17 codeine AdvReac Mild Nausea Verified 02/18/23 12:17 cast padding AdvReac Mild Hives / Uncoded 02/18/23 12:17 Red Face CEPHALEXIN MONOHYDRATE AdvReac Mild Nausea and Uncoded 02/18/23 12:17 Vomiting Review of Systems Review of Systems: CONSTITUTIONAL: Denies fever, chills, or sweats. EYES: Denies visual changes, redness, or discharge. ENT: Positive rhinorrhea, congestion, sore throat, denies otalgia. CARDIOVASCULAR: Denies chest pain, palpitations, or edema. RESPIRATORY: Denies cough or dyspnea. GASTROINTESTINAL: Denies abdominal pain, nausea, vomiting, or diarrhea. GENITOURINARY: Denies dysuria or hematuria. SKIN: Denies rash or itching. MUSCULOSKELETAL: Denies back pain, joint pain, or myalgia. NEUROLOGIC: Denies headache, numbness, or weakness. PSYCHIATRIC: Denies anxiety or depression. [facility] Past Medical History Medical History (Updated 02/18/23 @ 12:47 by PADMINI Miguel) Asthma as a kid Back injury during [employer] training for [employer] 2016 Hx of fracture of finger from basketball Family History Family History Mother Family history of glaucoma Father Patient's father is in good health Social History Social History Social History: quite 03/2019 Smoking status: Former smoker Alcohol intake: current Gender identity (if verbalized by the patient): Male Comments At the time of my signature I agree with nursing past medical history, surgical, social, and family history. There is no relevant family history pertinent to the presenting complaint. Exam Narrative: GENERAL: Well-appearing, well-nourished, and in no acute distress. HEAD: Normocephalic, atraumatic. EYES: PERRLA and EOMI. ENT: Nares with erythema and edema noted bilaterally with the left nares swollen shut., no rhinorrhea or epistaxis. Mucous membranes moist. Posterior pharynx with no erythema, tonsillar enlargement, exudates or lesions present. Bilateral TMs are clear no erythema foreign bodies canal. NECK: Supple. No lymphadenopathy CHEST: Clear to auscultation. No respiratory distress. HEART: Regular rate and rhythm. No murmur heard. Normal peripheral pulses. ABDOMEN: Soft, nontender, nondistended, normal active bowel sounds. EXTREMITIES: Normal range of motion. No edema. SKIN: Warm, dry, no rash. NEURO: No focal deficits. Alert and oriented x3. Course Course Level of Care: Express Care Visit Vital Signs Vital signs: Vital Signs Temperature 37.2 C 02/18/23 12:15 Pulse Rate 87 02/18/23 12:15 Respiratory Rate 16 02/18/23 12:15 Blood Pressure 132/77 02/18/23 12:15 Pulse Oximetry 99 02/18/23 12:15 Oxygen Delivery Room Air 02/18/23 12:15 Temperature 37.2 C 02/18/23 12:18 Pulse Rate 87 02/18/23 12:18 Respiratory Rate 16 02/18/23 12:18 Blood Pressure 132/77 02/18/23 12:18 Pulse Oximetry 99 02/18/23 12:18 Oxygen Delivery Room Air 0
== END 2023-02-18 12:50 | disposition home or self-care (01) ==
PROVIDERS: Emergency Provider Nurse Practitioner Family; PCP Physician Assistant
DX: J06.9 Acute upper respiratory infection, unspecified (principal); Z87.891 Personal history of nicotine dependence; Z20.822 Contact with and (suspected) exposure to COVID-19
CPT/HCPCS: 87081; 87426; 87804; 87880; 99213; C9803; G0463

== ENCOUNTER 2023-10-24 22:58 | Emergency (ER) | payer OTHER, SELFPAY ==
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
--- NOTE | ~2023-10-24 | XR_ITS ---
XR wrist LT min 3V Ordering provider: Jimmy Mcgregor MD History: . Wrist pain . Comparison: None. FINDINGS: BONES: No acute fracture or dislocation. No definite scaphoid fracture. JOINT SPACES: Well maintained. SOFT TISSUES: Normal. IMPRESSION: No acute osseous abnormality left wrist. Reviewed, dictated and finalized at location A.
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
--- NOTE | ~2023-10-24 | CT_ITS ---
Noncontrast CT scan of the cervical spine Technique: Multiple contiguous axial [address] images of the cervical spine were obtained and rec onstructed in 2D sagittal and coronal planes on the acquisition scanner. Dose reduction technique was used on this scan by utilizing automated exposure control, adjustment of the mA and/or kV according to patient size. The dose-length product (DLP) was 538.56 mGy-cm. Clinical History: Pain Findings: No fractures or dislocations. Unremarkable visualized bony structures. The intervertebral disc spaces are preserved. No prevertebral soft tissue swelling. Impression: No fracture or subluxation of the cervical spine. Reviewed, dictated and finalized at location . Impression: No fracture or subluxation of the cervical spine.
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
[2023-10-25] LABS: Add Urine Microscopic? NO; Appearance Urine Clear (Clear); Bilirubin Urine Negative (Negative); Blood Urine Negative (Negative); Color Urine Yellow (Yellow); Glucose Urine UA Negative (Negative); Ketones Urine Negative (Negative); Leukocyte Esterase Ur Negative LEU/UL (Negative); Nitrate Urine Negative (Negative); Protein Urine Negative (Negative); Specific Grav Ur 1.002 (1.001-1.035); Urobilinogen Urine 0.2 mg/dL (<2.0); pH Urine 5.5 (5.0-9.0)
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
[2023-10-25 00:22] VITALS: BP 116/62; PULSE 115; RESP 14; O2SAT 97
[2023-10-25] MEDS: TETANUS,DIPHTHERIA,AC PERTUSSIS ADULT (0.5 ML) BOOSTRIX IM (00:33)
[2023-10-25 00:38] LABS: Basophils Absolute Auto 0.1 K/mm3 (0.0-0.1); Basophils Percent Auto 0.4 % (0.2-1.2); Eosinophils Absolute Auto 0.1 K/mm3 (0-0.3); Eosinophils Percent Auto 0.6 % (0-4.4); Hematocrit 44.6 % (42.0-52.0); Hemoglobin 15.3 g/dL (14.0-18.0); Immature Granulocyte Absolute 0.08 K/mm3 (0.00-0.031); Immature Granulocyte Percent A 0.5 % (0-0.5); Lymphocytes Absolute Auto 1.91 K/mm3 (0.9-3.2); Lymphocytes Percent Auto 11.2 % (18.3-44.2); Mean Corpuscular HGB Conc 34.3 g/dl (32-36); Mean Corpuscular Hemoglobin 30.4 pg (26-34); Mean Corpuscular Volume 88.5 fl (80-100); Mean Platelet Volume 9.9 fl (7.4-10.4); Monocytes Absolute Auto 1.3 K/mm3 (0.1-0.6); Monocytes Percent Auto 7.6 % (2.6-8.5); Neutrophils Absolute Auto 13.7 K/mm3 (1.3-6.7); Neutrophils Percent Auto 79.7 % (45.5-73.1); Platelet Count Result 304 k/mm3 (150-375); Red Blood Count 5.04 M/mm3 (4.6-6.20); White Blood Count 17.1 K/mm3 (4.5-10.0)
[2023-10-25 00:50] LABS: INR 0.9; Prothrombin Time 12.8 Seconds (11.1-14.7)
[2023-10-25 00:51] LABS: Alanine Aminotransferase 26 U/L (6-50); Albumin Level 4.7 g/dL (3.5-5.1); Alkaline Phosphatase 42 U/L (38-126); Anion Gap 15 mmol/L (4-12); Aspartate Amino Transferase 37 U/L (17-59); Bilirubin,Total 0.5 mg/dL (0.2-1.3); Blood Urea Nitrogen 21 mg/dL (9-20); Calcium 9.3 mg/dL (8.4-10.2); Carbon Dioxide 19 mmol/L (22-30); Chloride 104 mmol/L (98-107); Estimated CRCL calculation 81 ml/min; Estimated Glomerular Filt Rate > 60; Glucose 103 mg/dL (65-110); Partial Thromboplastin Time 27.3 Seconds (22.3-36.8); Potassium 3.5 mmol/L (3.4-5.0); Sodium 138 mmol/L (137-145)
[2023-10-25] MEDS: ACETAMINOPHEN 325 MG TABLET 650 MG PO (01:50)
[2023-10-25] MEDS: SODIUM CHLORIDE 0.9% IV 1,000 ML 999 ML IV CONT (01:50)
[2023-10-25 01:52] VITALS: BP 132/73; PULSE 118; RESP 19; O2SAT 99
[2023-10-25 02:30] VITALS: BP 128/84; PULSE 112; RESP 18; O2SAT 100
== END 2023-10-25 03:15 | disposition home or self-care (01) ==
PROVIDERS: Physician Assistant; Emergency Provider Emergency Medicine; PCP Physician Assistant
DX: S09.90XA Unspecified injury of head, initial encounter (principal); S20.219A Contusion of unspecified front wall of thorax, initial encounter; S30.1XXA Contusion of abdominal wall, initial encounter; S63.502A Unspecified sprain of left wrist, initial encounter; T14.8XXA Other injury of unspecified body region, initial encounter; V29.99XA Rider (driver) (passenger) of other motorcycle injured in unspecified traffic accident, initial encounter; Z87.891 Personal history of nicotine dependence; Z23 Encounter for immunization
CPT/HCPCS: 36415; 70450; 71260; 72125; 73110; 74177; 80053; 81003; 85025; 85610; 85730; 90471; 90715; 96360; 99284; A9270; J7030; Q9967